=== PATIENT | male | born 1995 | race Hispanic/Latino ===

== ENCOUNTER 2018-02-13 19:57 | Emergency (ER) | payer OTHER ==
--- NOTE | 2018-02-13 20:38 | NUR ---
Pt being seen by RAIL[facility] SWITCHER at this time.
[2018-02-13] MEDS ORDERED: KETOROLAC TROMETHAMINE 30 MG/ML VIAL IV STA (20:40)
[2018-02-13] MEDS ORDERED: DIPHENHYDRAMINE HCL INJ 50 MG/ML VIAL IV ONE (20:45)
[2018-02-13] MEDS ORDERED: METOCLOPRAMIDE HCL 10 MG/2ML VIAL IV ONE (20:45)
[2018-02-13] MEDS ORDERED: SODIUM CHLORIDE 0.9% 1000ML 1,000 ML IV SCH (20:45)
--- NOTE | 2018-02-13 21:09 | Diagnostic Imaging Report ---
History: Headache Comparison studies: None Technique: Axial images were obtained from the skull base to the vertex. Coronal and sagittal reconstructions obtained from the axial data. Dose modulation, iterative reconstruction, and/or weight based adjustment of the mA/kV was utilized to reduce the radiation dose to as low as reasonably achievable. Findings: Scalp/skull: No abnormalities. No fractures, blastic or lytic lesions. Extra-axial spaces: No masses. No fluid collections. Brain sulci: Appropriate for age. Ventricles: Normal in size and configuration. No hydrocephalus. Parenchyma: No abnormal densities. No masses, hemorrhage, acute or chronic cortical vascular insults. Sellar/suprasellar region: No abnormalities Craniocervical junction: Patent foramen magnum. No Chiari one malformation. IMPRESSION: No abnormalities . Signed by: DR Thang Grider M.D. on 02/13/2018 9:06 PM
[2018-02-13 23:13] VITALS: BP 133/78
== END 2018-02-13 23:20 | disposition home or self-care (01) ==
LOC: ER 19:57
DX: G44.219 Episodic tension-type headache, not intractable (principal)
CPT/HCPCS: 70450; 99282; J1200; J1885; J2765; J7030